=== PATIENT | female | born 1990 ===

== ENCOUNTER 2019-03-19 12:05 | Emergency (ER) | payer OTHER ==
[2019-03-19 12:50] VITALS: BP 112/54
--- NOTE | 2019-03-19 13:42 | UC ---
Headache HPI - HPI Summary HPI Summary: 29-year-old female presents with complaints of headache and full body rash. States that 5 days ago she developed a fever of 102.5 F as well as some general malaise however has been afebrile since that time. Complains of an intermittent frontal headache that radiates across the top of her head. Seems to be provoked when she turns her head. Rates as a 4 out of 10 at its worst. Has taken acetaminophen with some improvement in the headache. States 4 days ago she noted a fine rash that covers her arms, legs, and trunk of her body. Mildly pruritic. Denies dizziness, vertigo, lightheadedness, visual disturbances, photophobia, neck pain or stiffness, nasal congestion, runny nose , ear pain, sore throat, cough, chest pain, shortness of breath, abdominal pain , nausea, or vomiting. - History Of Current Complaint Chief Complaint: UCGeneralIllness Stated Complaint: RASH HEADACHE Time Seen by Provider: 03/19/19 13:28 Hx Obtained From: Patient Hx Last Menstrual Period: 02/21/19 Pain Intensity: 0 - Allergies/Home Medications Allergies/Adverse Reactions: Allergies Allergy/AdvReac Type Severity Reaction Status Date / Time No Known Allergies Allergy Verified 03/19/19 12:51 Home Medications: Home Medications NK [No Home Medications Reported] 03/19/19 [History Confirmed 03/19/19] PMH/Surg Hx/FS Hx/Imm Hx Previously Healthy: Yes - Denies significant PMH - Surgical History Surgical History: None - Family History Known Family History: Positive: Non-Contributory - Social History Occupation: Employed Full-time Lives: With Family Alcohol Use: None Substance Use Type: None Smoking Status (MU): Never Smoked Tobacco Review of Systems All Other Systems Reviewed And Are Negative: Yes Constitutional: Positive: Fever Skin: Positive: Rash Eyes: Negative: Blurred Vision, Diplopia, Drainage, Eye Redness, Photophobia ENT: Negative: Sore Throat, Ear Ache, Nasal Discharge, Sinus Congestion, Sinus Pain/Tenderness Respiratory: Negative: Shortness Of Breath, Cough Cardiovascular: Negative: Palpitations, Chest Pain Gastrointestinal: Negative: Abdominal Pain, Vomiting, Nausea Genitourinary: Positive: Negative Musculoskeletal: Positive: Negative Neurological: Positive: Headache. Negative: Weakness, Paresthesia, Numbness Is Patient Immunocompromised?: No Physical Exam - Summary Physical Exam Summary: GENERAL APPEARANCE: Aert and cooperative obese female who appears to be in no acute distress. HEAD: Atraumatic. Normocephalic. EYES: Conjunctiva clear. No drainage. PERRL, EOM intact. Vision is grossly intact. EARS: External auditory canals and tympanic membranes clear, hearing grossly intact. NOSE: No nasal discharge. THROAT: Pharynx normal. No tonsilar inflammation, swelling, exudate, or lesions. Uvula midline. NECK: Neck supple, non-tender without lymphadenopathy. Full ROM. No nuchal rigidity. CARDIAC: Normal S1 and S2. No S3, S4 or murmurs. Rhythm is regular. There is no peripheral edema, cyanosis or pallor. Extremities are warm and well perfused. Capillary refill is less than 2 seconds. Peripheral pulses intact. LUNGS: Clear to auscultation without rales, rhonchi, wheezing or diminished breath sounds. ABDOMEN: Positive bowel sounds. Soft, nondistended, nontender. No guarding or rebound. No masses or hepatosplenomegally. MUSKULOSKELETAL: ROM intact to all extremities. No joint erythema or tenderness. Normal muscular development. Normal gait. NEUROLOGICAL: CN II-XII intact. Strength and sensation symmetric and intact throughout. Cerebellar testing normal. SKIN: Skin normal color, texture and turgor. Fine maculopapular rash to bilateral arms, trunk, and bilateral legs. Triage Information Reviewed: Yes Vital Signs: Initial Vital Signs Temp 99 F 03/19/19 12:48 Pulse 75 03/19/19 12:48 Resp 16 03/19/19 12:48 BP 112/54 03/19/19 12:48 Pulse Ox 100 03/19/19 12:48 Vital Signs Reviewed: Yes Headache Course/Dx - Course Course Of Treatment: 29-year-old female presents with complaints of headache and full body rash. States that 5 days ago she developed a fever of 102.5 F as well as some general malaise however has been afebrile since that time. Complains of an intermittent frontal headache that radiates across the top of her head. Seems to be provoked when she turns her head. Rates as a 4 out of 10 at its worst. Has taken acetaminophen with some improvement in the headache. States 4 days ago she noted a fine rash that covers her arms, legs, and trunk of her body. Mildly pruritic. Denies dizziness, vertigo, lightheadedness, visual disturbances, photophobia, neck pain or stiffness, nasal congestion, runny nose , ear pain, sore throat, cough, chest pain, shortness of breath, abdominal pain , nausea, or vomiting. Afebrile. Vital signs stable. On exam patient was neurologically intact, and a supple nontender neck with full range of motion and no nuchal rigidity, a fine maculopapular rash that covered her bilateral arms, legs, and trunk, normal TMs, no nasal congestion, normal pharynx, no cervical lymphadenopathy, clear bilateral breath sounds, and otherwise unremarkable exam. Discussed with the patient that her symptoms are likely from a viral syndrome and recommended continued symptomatic treatment at this time. She is to return here or follow up with her primary care provider in 3-5 days if symptoms are not improving. Anticipatory guidance and warning symptoms requiring immediate evaluation in the emergency room reviewed with patient. Verbalizes understanding and agrees with plan of care. - Differential Dx/Diagnosis Differential Diagnosis/HQI/PQRI: Meningitis, Migraine, Sinus Headache, Tension Headache, Viral Syndrome Provider Diagnosis: Acute viral syndrome Discharge ED - Sign-Out/Discharge Documenting (check all that apply): Patient Departure All imaging exams completed and their final reports reviewed: No Studies - Discharge Plan Condition: Stable Disposition: HOME Patient Education Materials: Viral Syndrome (ED) Referrals: No Primary Care Phys,NOPCP [Primary Care Provider] - Additional Instructions: Your history and exam are consistent with a viral infection. Viral infections do not respond to antibiotics and are limited to the treatment of symptoms. Viral infections typically run their course in 7-10 days. Be sure to get plenty of rest. Drink plenty of fluids. Take over the counter acetaminophen (Tylenol) or ibuprofen (Advil, Motrin) according to directions as needed for pain or fever. You may use an [id number] nondrowsy antihistamine such as Zyrtec, Claritin , or Chelly for any itching. Follow up with your primary care provider in 3-5 days if symptoms persist. Seek immediate medical attention in the emergency room if you have fever greater than 100.5 F despite taking acetaminophen or ibuprofen, have worsening of headache, neck pain or stiffness, visual disturbances, persistent dizziness, persistent vomiting, or have any worsening of symptoms. - Billing Disposition and Condition Condition: STABLE Disposition: Home
== END 2019-03-19 14:25 | disposition home or self-care (01) ==
LOC: UCEAST 12:05
DX: B34.9 Viral infection, unspecified (principal); R51 Headache; R21 Rash and other nonspecific skin eruption
CPT/HCPCS: 99211; G0463